=== PATIENT | male | born 1935 | race Caucasian/White ===

== ENCOUNTER → 2016-05-27 | Outpatient (CLI) | payer MEDICARE, OTHER | END | disposition home or self-care (01) | LOC: PCVCIMAG 13:08 | PROVIDERS: ATTEND Internal Medicine | DX: I25.10 Atherosclerotic heart disease of native coronary artery without angina pectoris (principal); E78.00 Pure hypercholesterolemia, unspecified; I50.30 Unspecified diastolic (congestive) heart failure; I10 Essential (primary) hypertension; I65.29 Occlusion and stenosis of unspecified carotid artery; G47.30 Sleep apnea, unspecified; Z95.0 Presence of cardiac pacemaker | CPT/HCPCS: 93306; G0463 ==

== ENCOUNTER → 2016-11-25 | Outpatient (CLI) | payer MEDICARE, OTHER | END | disposition home or self-care (01) | LOC: PCVCCLINIC 16:16 | PROVIDERS: ATTEND Internal Medicine | DX: I13.0 Hypertensive heart and chronic kidney disease with heart failure and stage 1 through stage 4 chronic kidney disease, or unspecified chronic kidney disease (principal); I25.10 Atherosclerotic heart disease of native coronary artery without angina pectoris; I50.32 Chronic diastolic (congestive) heart failure; E78.5 Hyperlipidemia, unspecified; N18.3 Chronic kidney disease, stage 3 (moderate); E11.22 Type 2 diabetes mellitus with diabetic chronic kidney disease; Z79.899 Other long term (current) drug therapy; G47.33 Obstructive sleep apnea (adult) (pediatric); Z95.0 Presence of cardiac pacemaker; R94.31 Abnormal electrocardiogram [ECG] [EKG] | CPT/HCPCS: 80061; 93005; G0463 ==

== ENCOUNTER → 2017-11-25 | Outpatient (CLI) | payer MEDICARE, OTHER ==
--- NOTE | 2017-11-25 15:28 | PCVCIMAG ---
APPROVED REPORT Study performed: 11/25/2017 13:03:55 EXAM: Comprehensive 2D, Doppler, and color-flow Echocardiogram Patient Location: Echo lab Status: routine BSA: 2.53 HR: 72 bpmBP: 142/98 mmHg Rhythm: Pacemaker Other Information Study Quality: Technically Limited Technically limited study due to lung disease, body habitus. Indications Congestive Heart Failure COPD Pacemaker CAD 2D Dimensions LVEF(%): 43.08 (>50%) IVSd: 16.94 (7-11mm) LVDd: 54.43 mm PWd: 16.61 (7-11mm) LVDs: 42.75 (25-40mm) Left Atrium: 43.44 (27-40mm) Aortic Root: 35.08 mm LV Single Plane 4CH: 45.51 % LV Single Plane 2CH: 38.42 %Epps's LVEF: 41.97 % Biplane EF: 45.2 % Volumes Left Atrial Volume (Systole) Single Plane 4CH: 126.25 mLSingle Plane 2CH: 158.06 mL LA ESV Index: 59.00 mL/m2 Aortic Valve AoV Peak Faustino.: 1.21 m/s AO Peak Gr.: 5.86 mmHgLVOT Max P.94 mmHg LVOT Max V: 0.97 m/s Mitral Valve E/A Ratio: 0.7 MV Decel. Time: 301.43 ms MV E Max Faustino.: 0.67 m/s MV A Faustino.: 0.94 m/s IVRT: 152.25 ms Pulmonary Valve PV Peak Faustino.: 0.82 m/sPV Peak Gr.: 2.70 mmHg Pulmonary Vein P Vein S: 0.20 m/sP Vein A: 0.39 m/s P Vein D: 0.41 m/sP Vein A Dur.: 155.7 msec P Vein S/D Ratio: 0.49 Tricuspid Valve TR Peak Faustino.: 2.71 m/s TR Peak Gr.: 29.31 mmHg Left Ventricle The left ventricle is normal size. There is normal LV segmental wall motion. Moderate to severe concentric left ventricular hypertrophy. Left ventricular systolic function is mildly decreased. Discordant septal motion probably from RV pacing. LVEF is 45-50%. Grade I - abnormal relaxation pattern. Right Ventricle The right ventricle is normal size. The right ventricular systolic function is normal. Pacemaker lead is present in the right ventricle. Atria Left atrium is severely dilated. Right atrium is mildly dilated. Pacemaker lead is present in the right atrium. Aortic Valve The aortic valve is normal in structure. No aortic regurgitation is present. There is no aortic valvular stenosis. Mitral Valve The mitral valve is normal in structure. Mild mitral regurgitation. No evidence of mitral valve stenosis. Tricuspid Valve The tricuspid valve is normal in structure. Mild tricuspid regurgitation with PAP of 36 mmHg. Pulmonic Valve The pulmonary valve is normal in structure. There is no pulmonic valvular regurgitation. Great Vessels The aortic root is normal in size. IVC is normal in size and collapses with >50% inspiration Pericardium There is no pericardial effusion. There is no pleural effusion. <Conclusion> Left ventricular systolic function is mildly decreased. Discordant septal motion probably from RV pacing. There is normal LV segmental wall motion. LVEF is 45-50%. Mild diastolic dysfunction Left atrium is severely dilated. The aortic valve is normal in structure. No aortic regurgitation or stenosis The mitral valve is normal in structure. Mild mitral regurgitation. Mild tricuspid regurgitation with pulmonary artery pressure of 36 mmHg. There is no pericardial effusion.
== END | disposition home or self-care (01) ==
LOC: PCVCIMAG 13:48
PROVIDERS: ATTEND Internal Medicine
DX: I25.10 Atherosclerotic heart disease of native coronary artery without angina pectoris (principal); I08.1 Rheumatic disorders of both mitral and tricuspid valves; I13.0 Hypertensive heart and chronic kidney disease with heart failure and stage 1 through stage 4 chronic kidney disease, or unspecified chronic kidney disease; E11.22 Type 2 diabetes mellitus with diabetic chronic kidney disease; N18.3 Chronic kidney disease, stage 3 (moderate); I50.32 Chronic diastolic (congestive) heart failure; Z95.0 Presence of cardiac pacemaker; I44.1 Atrioventricular block, second degree; J44.9 Chronic obstructive pulmonary disease, unspecified; Z79.82 Long term (current) use of aspirin
CPT/HCPCS: 80061; 93005; 93280; 93306; G0463

== ENCOUNTER → 2018-05-27 | Outpatient (CLI) | payer MEDICARE, OTHER | END | disposition home or self-care (01) | LOC: PCVCCLINIC 14:01 | PROVIDERS: ATTEND Internal Medicine | DX: I25.10 Atherosclerotic heart disease of native coronary artery without angina pectoris (principal); I13.0 Hypertensive heart and chronic kidney disease with heart failure and stage 1 through stage 4 chronic kidney disease, or unspecified chronic kidney disease; E11.22 Type 2 diabetes mellitus with diabetic chronic kidney disease; E11.51 Type 2 diabetes mellitus with diabetic peripheral angiopathy without gangrene; N18.3 Chronic kidney disease, stage 3 (moderate); I50.32 Chronic diastolic (congestive) heart failure; E78.5 Hyperlipidemia, unspecified; J44.9 Chronic obstructive pulmonary disease, unspecified; G47.33 Obstructive sleep apnea (adult) (pediatric); R94.31 Abnormal electrocardiogram [ECG] [EKG]; I25.2 Old myocardial infarction; Z95.0 Presence of cardiac pacemaker; Z88.8 Allergy status to other drugs, medicaments and biological substances; Z79.82 Long term (current) use of aspirin; Z79.899 Other long term (current) drug therapy; Z87.891 Personal history of nicotine dependence | CPT/HCPCS: 36415; 80061; 93005; 93280; G0463 ==

== ENCOUNTER → 2018-06-08 | Outpatient (CLI) | payer MEDICARE, OTHER | END | disposition home or self-care (01) | LOC: PCVCCLINIC 15:13 | PROVIDERS: ATTEND Internal Medicine | DX: I25.10 Atherosclerotic heart disease of native coronary artery without angina pectoris (principal); J44.9 Chronic obstructive pulmonary disease, unspecified; E78.5 Hyperlipidemia, unspecified; E11.22 Type 2 diabetes mellitus with diabetic chronic kidney disease; I13.0 Hypertensive heart and chronic kidney disease with heart failure and stage 1 through stage 4 chronic kidney disease, or unspecified chronic kidney disease; I50.32 Chronic diastolic (congestive) heart failure; N18.3 Chronic kidney disease, stage 3 (moderate); Z79.82 Long term (current) use of aspirin; I25.2 Old myocardial infarction; Z87.891 Personal history of nicotine dependence; Z88.2 Allergy status to sulfonamides; Z88.5 Allergy status to narcotic agent | CPT/HCPCS: 36415 ==